=== PATIENT | female | born 1940 | race African-American/Black ===

== ENCOUNTER 2021-02-20 16:26 | Emergency (ER) | payer MEDICARE, MEDICAID ==
[~2021-02-20] VITALS: Ht 172.7 cm; Wt 77.0 kg
[2021-02-20 16:27] VITALS: BP 130/90
[2021-02-20 17:48] LABS: CLARITY URINE CLEAR (CLEAR); COLOR URINE YELLOW (YELLOW); KETONES URINE NEGATIVE (NEGATIVE); LEUKOCYTE ESTERASE URINE 1+ (NEGATIVE); NITRITE URINE NEGATIVE (NEGATIVE); OCCULT BLOOD URINE TRACE (NEGATIVE); PH URINE 5.5 (4.5-8.0); PROTEIN URINE NEGATIVE (NEGATIVE); SPECIFIC GRAVITY URINE 1.008 (1.005-1.030); UROBILINOGEN URINE 0.2 E.U./dL (0.2-1.0)
[2021-02-20 17:59] LABS: CHLORIDE 108 mEq/L (98-107)
[2021-02-20 18:25] LABS: BASOPHILS % 0.4 % (0.0-2.0); HEMATOCRIT. 36.8 % (36.0-48.0); HEMOGLOBIN. 12.6 g/dL (12.0-16.0); LYMPHOCYTES % 14.5 % (20.0-50.0); MEAN CORPUSCULAR HEMOGLOBIN 28.5 pg (28.0-32.0); MEAN CORPUSCULAR VOLUME 83.5 fL (81.0-99.0); MEAN PLATELET VOLUME 8.2 fl (7.4-10.4); MONOCYTES % 6.6 % (2.0-8.0); NEUTROPHILS % 77.5 % (40.0-76.0); PLATELET 206 x1000/uL (130-400); RED BLOOD CELL COUNT 4.41 mill/uL (4.2-5.4); RED CELL DISTRIBUTION WIDTH 14.5 % (11.6-14.6)
== END 2021-02-20 19:29 | disposition home or self-care (01) ==
LOC: ER 16:26
DX: S70.02XA Contusion of left hip, initial encounter (principal); S70.01XA Contusion of right hip, initial encounter; I10 Essential (primary) hypertension; E78.00 Pure hypercholesterolemia, unspecified; W01.0XXA Fall on same level from slipping, tripping and stumbling without subsequent striking against object, initial encounter; Y93.9 Activity, unspecified; Y92.9 Unspecified place or not applicable; Z90.49 Acquired absence of other specified parts of digestive tract
CPT/HCPCS: 36415; 71045; 72170; 80053; 81003; 84484; 85025; 99284

== ENCOUNTER 2022-08-20 04:26 | Inpatient (IN) | payer MEDICARE, MEDICAID ==
[~2022-08-20] VITALS: Ht 177.8 cm; Wt 61.7 kg
[~2022-08-20 04:26] MED LIST: AMLO10TA80 MT; ASPI-1497 PO; ATOR20TA65 MT; TRIA1TAB92 MT
[2022-08-20] MEDS ORDERED: ACETAMINOPHEN 500MG TABLET PO ONE (04:45)
[2022-08-20 05:00] LABS: HEMATOCRIT. 33.8 % (36.0-48.0); HEMOGLOBIN. 11.5 g/dL (12.0-16.0); MEAN CORPUSCULAR HEMOGLOBIN 30.1 pg (28.0-32.0); MEAN CORPUSCULAR VOLUME 88.8 fL (81.0-99.0); MEAN PLATELET VOLUME 7.8 fl (7.4-10.4); PLATELET 184 x1000/uL (130-400); RED BLOOD CELL COUNT 3.81 mill/uL (4.2-5.4); RED CELL DISTRIBUTION WIDTH 16.5 % (11.6-14.6)
[2022-08-20 05:11] LABS: CHLORIDE 101 mEq/L (98-107)
[2022-08-20 06:07] LABS: PROTHROMBIN TIME 10.9 sec (9.6-11.0)
[2022-08-20 06:12] LABS: PLATELET ESTIMATE NORMAL
[2022-08-20] MEDS ORDERED: PIPERACILLIN/TAZ 3.375G PREMIX 50 ML IV ONE (06:30)
[2022-08-20] MEDS ORDERED: VANCOMYCIN 1G PREMIX 200 ML IV ONE (06:30)
[2022-08-20] MEDS ORDERED: FUROSEMIDE 40MG/4ML VIAL IVP ONE (07:45)
[2022-08-20] MEDS ORDERED: ENALAPRIL 2.5MG/2ML VIAL 2ML IV ONE (07:45)
[2022-08-20] MEDS ORDERED: CLONIDINE 0.1MG TABLET PO PRN (11:30)
[2022-08-20] MEDS ORDERED: DIPHENHYDRAMINE 50MG/ML VIAL IV PRN (11:30)
[2022-08-20] MEDS ORDERED: ONDANSETRON HCL 4MG/2ML INJ IV PRN (11:30)
[2022-08-20] MEDS ORDERED: ACETAMINOPHEN 325MG TABLET PO PRN (11:30)
[2022-08-20] MEDS ORDERED: IPRATROPIUM/ALBUTEROL 0.5-3(2.5)MG/3ML NEB HHN PRN (11:30)
[2022-08-20] MEDS ORDERED: CEFTRIAXONE 1 G PREMIX 50 ML IV SCH (12:00)
[2022-08-20] MEDS ORDERED: AZITHROMYCIN 500MG/250ML 250 ML IV NR (12:00)
[2022-08-20 13:00] VITALS: BP 142/64
[2022-08-20] MEDS: ENOXAPARIN 40MG/0.4ML SYR SUBCUT SCH (15:52)
[2022-08-20 20:00] VITALS: BP 108/58
[2022-08-21] VITALS: BP 109/61
[2022-08-21 04:00] VITALS: BP 122/63
[2022-08-21 08:00] VITALS: BP 140/68
[2022-08-21] MEDS ORDERED: DYZ MT (10:36)
[2022-08-21] MEDS: ACETAMINOPHEN 325MG TABLET PO PRN (10:47)
[2022-08-21] MEDS: AMLODIPINE 10MG TABLET PO SCH (10:48)
[2022-08-21 11:59] VITALS: BP 113/63
[2022-08-21] MEDS ORDERED: AZITHROMYCIN 500 MG in DEXT 5% WATER 250 ML IV SCH (12:00)
[2022-08-21] MEDS: AZITHROMYCIN 500 MG in DEXT 5% WATER 250 ML IV SCH (12:16)
[2022-08-21] MEDS: ENOXAPARIN 40MG/0.4ML SYR SUBCUT SCH (12:17)
[2022-08-21] MEDS: CEFTRIAXONE 1,000 MG in DEXTROSE 5% WATER 50 ML IV SCH (15:04)
[2022-08-21 16:00] VITALS: BP 101/62
[2022-08-21 20:00] VITALS: BP 128/69
[2022-08-21] MEDS ORDERED: ATORVASTATIN CALCIUM 20MG TABLET PO SCH (21:00)
[2022-08-22] VITALS: BP 126/63
[2022-08-22 07:38] LABS: BASOPHILS % 0.2 % (0.0-2.0); EOSINOPHILS % 2.8 % (0.0-5.0); HEMATOCRIT. 32.7 % (36.0-48.0); LYMPHOCYTES % 20.1 % (20.0-50.0); MEAN CORPUSCULAR HEMOGLOBIN 29.9 pg (28.0-32.0); MEAN CORPUSCULAR VOLUME 89.1 fL (81.0-99.0); MEAN PLATELET VOLUME 8.4 fl (7.4-10.4); MONOCYTES % 14.6 % (2.0-8.0); NEUTROPHILS % 62.3 % (40.0-76.0); PLATELET 193 x1000/uL (130-400); RED BLOOD CELL COUNT 3.67 mill/uL (4.2-5.4); RED CELL DISTRIBUTION WIDTH 16.6 % (11.6-14.6)
[2022-08-22 07:59] LABS: CHLORIDE 103 mEq/L (98-107)
[2022-08-22 08:00] VITALS: BP 123/62
[2022-08-22] MEDS: AMLODIPINE 10MG TABLET PO SCH (09:59)
[2022-08-22] MEDS: ACETAMINOPHEN 325MG TABLET PO PRN (10:02)
[2022-08-22] MEDS ORDERED: ALBU18HF2 IH (11:43)
[2022-08-22] MEDS ORDERED: GUAI600T44 MT (11:43)
[2022-08-22] MEDS ORDERED: BENZ100C86 MT (11:43)
[2022-08-22] MEDS ORDERED: AZIT500T8 MT (11:43)
[2022-08-22] MEDS ORDERED: GUAIFENESIN 600MG ER TABLET PO SCH (11:45)
[2022-08-22] MEDS ORDERED: BENZONATATE 100MG CAPSULE PO PRN (11:45)
[2022-08-22 12:00] VITALS: BP 111/51
[2022-08-22] MEDS: AZITHROMYCIN 500 MG in DEXT 5% WATER 250 ML IV SCH (12:28)
[2022-08-22] MEDS: ENOXAPARIN 40MG/0.4ML SYR SUBCUT SCH (12:29)
[2022-08-22] MEDS: CEFTRIAXONE 1,000 MG in DEXTROSE 5% WATER 50 ML IV SCH (12:29)
[2022-08-22 14:20] VITALS: BP 111/51
[2022-08-22 16:00] VITALS: BP 138/82
[2022-08-23] MEDS ORDERED: AZITHROMYCIN 500 MG TABLET PO SCH (12:00)
== END 2022-08-22 18:40 | disposition home or self-care (01) | DRG 720 ==
LOC: ER 04:26 → EDBEDREQSVC 06:56 → EDBEDREQ 06:56 → EDBEDREQTM 06:56 → 7EST 09:10 → EDBEDREQTM 09:28 → EDBEDREQ 09:28 → ER 14:02
PROVIDERS: ADMIT Internal Medicine; ATTEND Internal Medicine
DX: A41.89 Other specified sepsis (principal); J12.82 Pneumonia due to coronavirus disease 2019; E44.1 Mild protein-calorie malnutrition; U07.1 COVID-19; R73.03 Prediabetes; J45.909 Unspecified asthma, uncomplicated; Z79.899 Other long term (current) drug therapy; Z78.9 Other specified health status; Z68.1 Body mass index [BMI] 19.9 or less, adult
CPT/HCPCS: 36415; 71045; 80048; 80053; 83605; 83880; 84145; 84484; 85025; 87426; 87804; 93005; 93970; 99291; C1893; C9803; J0456; J0696; J1650; J2543; J3370; J3490; J7060

== ENCOUNTER 2022-11-27 12:11 | Inpatient (IN) | payer MEDICARE, MEDICAID ==
[~2022-11-27] VITALS: Ht 167.6 cm; Wt 79.8 kg
[~2022-11-27 12:11] MED LIST changes: +ALBU18HF2 IH; -ASPI-1497 PO; +AZIT500T8 MT; +BENZ100C86 MT; +GUAI600T44 MT; -TRIA1TAB92 MT
[2022-11-27 12:56] LABS: BG CARBOXYHEMOGLOBIN 0.4 % (0.5-1.5); BG DEOXYHEMOGLOBIN 3.4 % (0.0-5.0); BG FRACTION INSPIRED OXYGEN 100; BG HCO3 ACT 26.6 mmol/L (22.0-26.0); BG METHEMOGLOBIN 0.4 % (0.0-1.5); BG OXYGEN SATURATION 96.6 % (92.0-98.5); BG OXYHEMOGLOBIN 95.8 % (94.0-97.0); BG PCO2 58.7 mmHg (35.0-45.0); BG PH 7.274 (7.350-7.450); BG PO2 99.6 mmHg (75.0-100.0); BG SAMPLE SITE LEFT BRACHIAL; BG TOTAL HEMOGLOBIN 10.9 g/dL (12.0-18.0); BG VENT MODE MASK - NRB
[2022-11-27] MEDS: CEFTRIAXONE 1GM PREMIX 50 ML IV NR ×2 (14:00→15:16)
[2022-11-27 15:14] LABS: BASOPHILS % 0.2 % (0.0-2.0); EOSINOPHILS % 1.9 % (0.0-5.0); HEMATOCRIT. 31.9 % (36.0-48.0); LYMPHOCYTES % 9.9 % (20.0-50.0); MEAN CORPUSCULAR HEMOGLOBIN 31.1 pg (28.0-32.0); MEAN CORPUSCULAR VOLUME 89.9 fL (81.0-99.0); MEAN PLATELET VOLUME 7.7 fl (7.4-10.4); MONOCYTES % 5.9 % (2.0-8.0); NEUTROPHILS % 82.1 % (40.0-76.0); PLATELET 257 x1000/uL (130-400); RED BLOOD CELL COUNT 3.55 mill/uL (4.2-5.4)
[2022-11-27 15:22] LABS: CHLORIDE 103 mEq/L (98-107)
[2022-11-27] MEDS ORDERED: CLONIDINE 0.1MG TABLET PO PRN (18:45)
[2022-11-27] MEDS ORDERED: ONDANSETRON HCL 4MG/2ML INJ IV PRN (18:45)
[2022-11-27] MEDS ORDERED: ACETAMINOPHEN 325MG TABLET PO PRN (18:45)
[2022-11-27] MEDS ORDERED: IPRATROPIUM/ALBUTEROL 0.5-3(2.5)MG/3ML NEB HHN PRN (18:45)
[2022-11-27] MEDS ORDERED: DIPHENHYDRAMINE 50MG/ML VIAL IV PRN (18:45)
[2022-11-27 22:02] VITALS: BP 151/51
[2022-11-28] VITALS (13 sets, daily range): BP systolic 104–143; BP diastolic 35–62
[2022-11-28] MEDS ORDERED: AMI2 PO (01:37)
[2022-11-28] MEDS ORDERED: HYDR-4001 MT (01:37)
[2022-11-28] MEDS ORDERED: PROT40 PO (01:37)
[2022-11-28] MEDS ORDERED: LISI40TA13 PO (01:37)
[2022-11-28] MEDS ORDERED: CARV12.545 PO (01:37)
[2022-11-28] MEDS ORDERED: APIX2.5T PO (01:37)
[2022-11-28] MEDS ORDERED: TRIA1TAB94 MT (01:37)
[2022-11-28] MEDS ORDERED: COLL30OI TP (01:37)
[2022-11-28] MEDS ORDERED: HYDROCODONE/ACETAMINOPHEN 5/325MG TABLET PO PRN (01:45)
[2022-11-28] MEDS: PANTOPRAZOLE 40MG DR TABLET PO SCH (06:10)
[2022-11-28 06:35] LABS: BASOPHILS % 1.1 % (0.0-2.0); EOSINOPHILS % 6.8 % (0.0-5.0); HEMATOCRIT. 30.9 % (36.0-48.0); HEMOGLOBIN. 10.5 g/dL (12.0-16.0); LYMPHOCYTES % 9.9 % (20.0-50.0); MEAN CORPUSCULAR HEMOGLOBIN 30.5 pg (28.0-32.0); MEAN PLATELET VOLUME 8.1 fl (7.4-10.4); MONOCYTES % 10.1 % (2.0-8.0); NEUTROPHILS % 72.1 % (40.0-76.0); PLATELET 218 x1000/uL (130-400); RED BLOOD CELL COUNT 3.44 mill/uL (4.2-5.4); RED CELL DISTRIBUTION WIDTH 14.9 % (11.6-14.6)
[2022-11-28 06:58] LABS: CHLORIDE 105 mEq/L (98-107)
[2022-11-28] MEDS ORDERED: TRIAMTERENE/HCTZ 37.5/25MG TABLET PO SCH (09:00)
[2022-11-28] MEDS ORDERED: LISINOPRIL 40MG TABLET PO SCH (09:00)
[2022-11-28] MEDS ORDERED: AMIODARONE HCL 200 MG TABLET PO SCH (09:00)
[2022-11-28] MEDS ORDERED: COLLAGENASE TOP SCH (09:00)
[2022-11-28] MEDS: CARVEDILOL 12.5MG TABLET PO SCH ×2 (09:21→17:03)
[2022-11-28] MEDS: AMLODIPINE 10MG TABLET PO SCH (09:22)
[2022-11-28] MEDS: APIXABAN 2.5 MG TABLET PO SCH ×2 (09:36→17:03)
[2022-11-28] MEDS: IPRATROPIUM BROMIDE (0.02%) 0.5MG/2.5ML NEB HHN SCH ×2 (12:38→20:01)
[2022-11-28] MEDS: FUROSEMIDE 40MG/4ML VIAL IVP SCH ×2 (15:36→17:03)
[2022-11-28] MEDS: ATORVASTATIN CALCIUM 20MG TABLET PO SCH (22:00)
[2022-11-29] VITALS (9 sets, daily range): BP systolic 104–133; BP diastolic 31–76
[2022-11-29] MEDS: IPRATROPIUM BROMIDE (0.02%) 0.5MG/2.5ML NEB HHN SCH ×4 (02:50→21:11)
[2022-11-29] MEDS: PANTOPRAZOLE 40MG DR TABLET PO SCH (06:07)
[2022-11-29 06:40] LABS: BASOPHILS % 0.4 % (0.0-2.0); EOSINOPHILS % 5.4 % (0.0-5.0); HEMATOCRIT. 31.6 % (36.0-48.0); HEMOGLOBIN. 10.6 g/dL (12.0-16.0); LYMPHOCYTES % 12.9 % (20.0-50.0); MEAN CORPUSCULAR HEMOGLOBIN 30.3 pg (28.0-32.0); MEAN CORPUSCULAR VOLUME 90.1 fL (81.0-99.0); MEAN PLATELET VOLUME 8.2 fl (7.4-10.4); MONOCYTES % 9.1 % (2.0-8.0); NEUTROPHILS % 72.2 % (40.0-76.0); PLATELET 199 x1000/uL (130-400); RED CELL DISTRIBUTION WIDTH 15.1 % (11.6-14.6)
[2022-11-29 07:44] LABS: CHLORIDE 105 mEq/L (98-107)
[2022-11-29 07:54] LABS: PHOSPHORUS 3.7 mg/dL (2.5-4.9)
[2022-11-29] MEDS ORDERED: SPIRONOLACTONE 25MG TABLET PO SCH (09:00)
[2022-11-29] MEDS: CARVEDILOL 12.5MG TABLET PO SCH ×2 (09:00→18:27)
[2022-11-29] MEDS: AMLODIPINE 10MG TABLET PO SCH (09:00)
[2022-11-29] MEDS: FUROSEMIDE 40MG/4ML VIAL IVP SCH ×2 (09:08→17:10)
[2022-11-29] MEDS: APIXABAN 2.5 MG TABLET PO SCH ×2 (09:08→18:27)
[2022-11-29] MEDS ORDERED: IPRATROPIUM BROMIDE (0.02%) 0.5MG/2.5ML NEB HHN PRN (17:00)
[2022-11-29] MEDS ORDERED: ALBUTEROL (0.083%) 2.5MG/3ML NEB HHN PRN (17:00)
[2022-11-29] MEDS ORDERED: NALOXONE HCL 0.4MG/ML VIAL IV PRN (17:00)
[2022-11-29] MEDS ORDERED: METOLAZONE 2.5MG TABLET PO NR (19:30)
[2022-11-29] MEDS: ATORVASTATIN CALCIUM 20MG TABLET PO SCH (21:34)
[2022-11-30] VITALS: BP 101/40
[2022-11-30] MEDS: IPRATROPIUM BROMIDE (0.02%) 0.5MG/2.5ML NEB HHN SCH ×3 (02:26→14:06)
[2022-11-30 04:00] VITALS: BP 122/43
[2022-11-30] MEDS: PANTOPRAZOLE 40MG DR TABLET PO SCH (05:57)
[2022-11-30 07:04] LABS: CHLORIDE 98 mEq/L (98-107)
[2022-11-30 08:25] VITALS: BP 118/54
[2022-11-30] MEDS: AMLODIPINE 10MG TABLET PO SCH (08:28)
[2022-11-30] MEDS: APIXABAN 2.5 MG TABLET PO SCH ×2 (08:29→17:07)
[2022-11-30] MEDS: FUROSEMIDE 40MG/4ML VIAL IVP SCH (08:29)
[2022-11-30] MEDS: CARVEDILOL 12.5MG TABLET PO SCH ×2 (08:29→17:07)
[2022-11-30] MEDS ORDERED: IPRATROPIUM/ALBUTEROL 0.5-3(2.5)MG/3ML NEB HHN PRN (09:45)
[2022-11-30 11:23] LABS: BG BASE EXCESS 10.2 mmol/L (-2.0-2.0); BG CARBOXYHEMOGLOBIN 0.3 % (0.5-1.5); BG DEOXYHEMOGLOBIN 1.4 % (0.0-5.0); BG FRACTION INSPIRED OXYGEN 32; BG HCO3 ACT 36.9 mmol/L (22.0-26.0); BG METHEMOGLOBIN 0.2 % (0.0-1.5); BG OXYGEN SATURATION 98.6 % (92.0-98.5); BG OXYHEMOGLOBIN 98.1 % (94.0-97.0); BG PCO2 61.2 mmHg (35.0-45.0); BG PH 7.398 (7.350-7.450); BG PO2 156.3 mmHg (75.0-100.0); BG SAMPLE SITE RIGHT RADIAL; BG TOTAL HEMOGLOBIN 10.7 g/dL (12.0-18.0); BG VENT MODE NASAL CANNULA
[2022-11-30 12:00] VITALS: BP 102/56
[2022-11-30] MEDS ORDERED: FAMO20TA8 PO (12:30)
[2022-11-30] MEDS ORDERED: FURO40TA5 MT (12:30)
[2022-11-30] MEDS ORDERED: BENZONATATE 100MG CAPSULE PO PRN (12:30)
[2022-11-30] MEDS ORDERED: GUAIFENESIN 600MG ER TABLET PO SCH (12:30)
[2022-11-30] MEDS ORDERED: BENZ100C86 MT (12:30)
[2022-11-30 14:21] VITALS: BP 102/56
[2022-11-30 16:06] VITALS: BP 116/50
[2022-12-01] MEDS ORDERED: FAMOTIDINE 20MG TABLET PO SCH (06:40)
[2022-12-01] MEDS ORDERED: FUROSEMIDE 40MG TABLET PO SCH (09:00)
== END 2022-11-30 18:10 | disposition home health service (06) | DRG 194 ==
LOC: ER 12:11 → MICUNO 16:34 → EDBEDREQ 16:45 → EDBEDREQSVC 16:45 → EDBEDREQTM 16:45 → ENRESERV 20:19 → 7EST 11-29 12:35
PROVIDERS: ADMIT Internal Medicine; ATTEND Internal Medicine
PROC: 5A09357 Assistance with Respiratory Ventilation, Less than 24 Consecutive Hours, Continuous Positive Airway Pressure (ICD-10-PCS; principal; 2022-11-27)
DX: I11.0 Hypertensive heart disease with heart failure (principal); J96.01 Acute respiratory failure with hypoxia; J96.02 Acute respiratory failure with hypercapnia; E44.1 Mild protein-calorie malnutrition; E87.29 Other acidosis; I50.43 Acute on chronic combined systolic (congestive) and diastolic (congestive) heart failure; D64.9 Anemia, unspecified; E78.5 Hyperlipidemia, unspecified; J81.1 Chronic pulmonary edema; Z68.28 Body mass index [BMI] 28.0-28.9, adult; I48.91 Unspecified atrial fibrillation; Z20.822 Contact with and (suspected) exposure to COVID-19; J45.909 Unspecified asthma, uncomplicated; Z87.01 Personal history of pneumonia (recurrent)
CPT/HCPCS: 36415; 36600; 71045; 80048; 80053; 82375; 82805; 83735; 83880; 84100; 84145; 84484; 85025; 87426; 93005; 93306; 93970; 94640; 94660; 97162; 99291; C9803; J0696; J1940

== ENCOUNTER 2023-07-22 03:35 | Inpatient (IN) | payer MEDICARE, MEDICAID ==
[~2023-07-22] VITALS: Ht 175.3 cm; Wt 86.2 kg
[~2023-07-22 03:35] MED LIST changes: -ALBU18HF2 IH; -AMLO10TA80 MT; +APIX5TAB PO; -AZIT500T8 MT; -BENZ100C86 MT; +DIGO-34 PO; +FAMO20TA8 PO; +FURO20TA4 PO; -GUAI600T44 MT; +METO25TA6 PO; +MONT-46 PO
[2023-07-22 04:38] LABS: BASOPHILS % 0.6 % (0.0-2.0); EOSINOPHILS % 2.7 % (0.0-5.0); HEMATOCRIT. 31.5 % (36.0-48.0); HEMOGLOBIN. 10.2 g/dL (12.0-16.0); LYMPHOCYTES % 21.4 % (20.0-50.0); MEAN CORPUSCULAR HEMOGLOBIN 27.9 pg (28.0-32.0); MEAN CORPUSCULAR HGB CONC 32.2 g/dL (31.0-37.0); MEAN CORPUSCULAR VOLUME 86.5 fL (81.0-99.0); MEAN PLATELET VOLUME 8.1 fl (7.4-10.4); MONOCYTES % 9.5 % (2.0-8.0); NEUTROPHILS % 65.8 % (40.0-76.0); PLATELET 218 x1000/uL (130-400); RED BLOOD CELL COUNT 3.65 mill/uL (4.2-5.4); RED CELL DISTRIBUTION WIDTH 17.6 % (11.6-14.6); WHITE BLOOD COUNT 7.9 x1000/uL (4.5-11.0)
[2023-07-22] MEDS ORDERED: METOPROLOL TARTRATE 5MG/5ML VIAL IV ONE ×3 (04:45→05:45)
[2023-07-22 04:57] LABS: ALANINE AMINOTRANSFERASE 40 IU/L (10-49); ALBUMIN 3.8 g/dL (3.2-4.8); ASPARTATE AMINOTRANSFERASE 37 IU/L (<34); BILIRUBIN TOTAL 0.5 mg/dL (0.1-1.0); CALCIUM 9.5 mg/dL (8.7-10.4); CARBON DIOXIDE 30 mEq/L (21-32); CHLORIDE 105 mEq/L (98-107); CREATININE 0.9 mg/dL (0.6-1.0); GLUCOSE 136 mg/dL (70-105); POTASSIUM 4.1 mEq/L (3.5-5.1); PROTEIN TOTAL 6.2 g/dL (6.0-8.3); SODIUM 140 mEq/L (136-145); THYROID STIMULATING HORMONE 0.77 uIU/mL (0.55-4.78); TROPONIN I HIGH SENSITIVITY 11 ng/L (3.0-34); UREA NITROGEN BLOOD 13 mg/dL (9-23)
[2023-07-22] MEDS ORDERED: IOHEXOL-350 100 ML BOTTLE ONE (07:38)
[2023-07-22 08:00] VITALS: BP 160/106; PULSE 156; RESP 22; TEMP 97.8
[2023-07-22] MEDS ORDERED: GUAIFENESIN 200MG/10ML SUGAR FREE UDC PO PRN (08:30)
[2023-07-22] MEDS ORDERED: DOCUSATE SODIUM 100MG CAPSULE PO PRN (08:30)
[2023-07-22] MEDS ORDERED: DILTIAZEM HCL 5MG/ML 5ML VIAL IV NR (08:30)
[2023-07-22] MEDS ORDERED: ONDANSETRON HCL 4MG/2ML INJ IV PRN (08:30)
[2023-07-22] MEDS: ASPIRIN 81MG EC TABLET PO SCH (08:46)
[2023-07-22] MEDS ORDERED: ENOXAPARIN 40MG/0.4ML SYR SUBCUT SCH (09:00)
[2023-07-22] MEDS ORDERED: ENOXAPARIN 60MG/0.6ML SYR SUBCUT NR (11:30)
[2023-07-22] MEDS: DILTIAZEM HCL 30MG TABLET PO SCH ×2 (13:02→21:34)
[2023-07-22] MEDS: CLONIDINE 0.1MG TABLET PO PRN (13:03)
[2023-07-22] MEDS ORDERED: DILTIAZEM HCL 125 MG in DEXT 5% WATER 100 ML IV SCH (14:00)
[2023-07-22 16:00] VITALS: BP 120/69; PULSE 108; RESP 22; TEMP 97.7
[2023-07-22 16:59] LABS: TROPONIN I HIGH SENSITIVITY 14 ng/L (3.0-34)
[2023-07-22 20:00] VITALS: BP 140/109; PULSE 122; RESP 26; TEMP 97.9
[2023-07-22] MEDS: MORPHINE SULFATE 2 MG/ML CPJ (NOT FOR IM USE) IV PRN (20:52)
[2023-07-22] MEDS: ENOXAPARIN 100MG/ML SYR SUBCUT SCH (22:09)
[2023-07-23] VITALS (11 sets, daily range): BP systolic 124–149; BP diastolic 61–122; PULSE 86–98; RESP 20–28; TEMP 97.5–98.5; O2SAT 98
[2023-07-23 00:14] LABS: TROPONIN I HIGH SENSITIVITY 14 ng/L (3.0-34)
[2023-07-23] MEDS: DILTIAZEM HCL 30MG TABLET PO SCH ×2 (05:01→13:53)
[2023-07-23] MEDS: ACETAMINOPHEN 325MG TABLET PO PRN (06:56)
[2023-07-23 07:52] LABS: BASOPHILS % 0.5 % (0.0-2.0); EOSINOPHILS % 2.3 % (0.0-5.0); HEMATOCRIT. 28.7 % (36.0-48.0); HEMOGLOBIN. 9.4 g/dL (12.0-16.0); LYMPHOCYTES % 17.4 % (20.0-50.0); MEAN CORPUSCULAR HEMOGLOBIN 27.9 pg (28.0-32.0); MEAN CORPUSCULAR HGB CONC 32.8 g/dL (31.0-37.0); MEAN PLATELET VOLUME 8.4 fl (7.4-10.4); MONOCYTES % 13.2 % (2.0-8.0); NEUTROPHILS % 66.6 % (40.0-76.0); PLATELET 220 x1000/uL (130-400); RED BLOOD CELL COUNT 3.37 mill/uL (4.2-5.4); RED CELL DISTRIBUTION WIDTH 17.4 % (11.6-14.6); WHITE BLOOD COUNT 8.7 x1000/uL (4.5-11.0)
[2023-07-23 08:26] LABS: ALANINE AMINOTRANSFERASE 59 IU/L (10-49); ALBUMIN 3.6 g/dL (3.2-4.8); ASPARTATE AMINOTRANSFERASE 44 IU/L (<34); BILIRUBIN TOTAL 0.8 mg/dL (0.1-1.0); CALCIUM 9.1 mg/dL (8.7-10.4); CARBON DIOXIDE 31 mEq/L (21-32); CHLORIDE 105 mEq/L (98-107); CHOLESTEROL 124 mg/dL (<200); CREATININE 0.8 mg/dL (0.6-1.0); GLUCOSE 99 mg/dL (70-105); HDL CHOLESTEROL 47 mg/dL (>65); LDL CHOLESTEROL 58 mg/dL (5-100); POTASSIUM 4.5 mEq/L (3.5-5.1); PROTEIN TOTAL 5.8 g/dL (6.0-8.3); SODIUM 141 mEq/L (136-145); TRIGLYCERIDE 61 mg/dL (0-150); UREA NITROGEN BLOOD 15 mg/dL (9-23)
[2023-07-23] MEDS: ENOXAPARIN 100MG/ML SYR SUBCUT SCH (09:02)
[2023-07-23] MEDS: ASPIRIN 81MG EC TABLET PO SCH (09:02)
[2023-07-23] MEDS ORDERED: NALOXONE HCL 0.4MG/ML VIAL IV PRN (11:30)
[2023-07-23] MEDS ORDERED: PROPOFOL 200MG/20ML VIAL IV ONE (15:25)
[2023-07-23] MEDS: MONTELUKAST SODIUM 10MG TABLET PO SCH (16:14)
[2023-07-23] MEDS: MORPHINE SULFATE 2 MG/ML CPJ (NOT FOR IM USE) IV PRN (16:14)
[2023-07-23] MEDS: IPRATROPIUM/ALBUTEROL 0.5-3(2.5)MG/3ML NEB HHN SCH (20:07)
[2023-07-23] MEDS: ENOXAPARIN 80MG/0.8ML SYR SUBCUT SCH (21:36)
[2023-07-23] MEDS: DILTIAZEM HCL 60MG TABLET PO SCH (21:38)
[2023-07-24] VITALS (17 sets, daily range): BP systolic 132–169; BP diastolic 59–78; PULSE 90–167; RESP 18–30; TEMP 97.3–97.8; O2SAT 94–100
[2023-07-24] MEDS: IPRATROPIUM/ALBUTEROL 0.5-3(2.5)MG/3ML NEB HHN SCH ×4 (02:00→21:12)
[2023-07-24] MEDS: DILTIAZEM HCL 60MG TABLET PO SCH ×3 (06:45→21:25)
[2023-07-24] MEDS: TRAMADOL 50MG TABLET PO PRN ×2 (06:45→21:26)
[2023-07-24] MEDS: ENOXAPARIN 80MG/0.8ML SYR SUBCUT SCH ×2 (09:45→21:26)
[2023-07-24] MEDS: ASPIRIN 81MG EC TABLET PO SCH (09:45)
[2023-07-24] MEDS ORDERED: DILTIAZEM HCL 5MG/ML 5ML VIAL IV PRN (12:00)
[2023-07-24] MEDS: DIGOXIN 125MCG TABLET PO SCH ×2 (12:31→17:53)
[2023-07-24 13:01] LABS: BG BASE EXCESS -1.1 mmol/L (-2.0-2.0); BG CARBOXYHEMOGLOBIN 0.3 % (0.5-1.5); BG DEOXYHEMOGLOBIN 7.4 % (0.0-5.0); BG HCO3 ACT 28.4 mmol/L (22.0-26.0); BG METHEMOGLOBIN 0.3 % (0.0-1.5); BG OXYGEN SATURATION 92.6 % (92.0-98.5); BG PCO2 77.2 mmHg (35.0-45.0); BG PH 7.183 (7.350-7.450); BG PO2 73.1 mmHg (75.0-100.0); BG SAMPLE SITE RIGHT BRACHIAL; BG TOTAL HEMOGLOBIN 10.4 g/dL (12.0-18.0); BG VENT MODE NASAL CANNULA
[2023-07-24 14:54] LABS: BG BASE EXCESS 0.6 mmol/L (-2.0-2.0); BG CARBOXYHEMOGLOBIN 0.3 % (0.5-1.5); BG DEOXYHEMOGLOBIN 3.3 % (0.0-5.0); BG HCO3 ACT 29.9 mmol/L (22.0-26.0); BG METHEMOGLOBIN 0.4 % (0.0-1.5); BG OXYGEN SATURATION 96.7 % (92.0-98.5); BG PH 7.202 (7.350-7.450); BG PO2 97.4 mmHg (75.0-100.0); BG SAMPLE SITE RIGHT BRACHIAL; BG TOTAL HEMOGLOBIN 10.3 g/dL (12.0-18.0); BG VENT MODE MASK - BIPAP
[2023-07-24 16:40] LABS: BG BASE EXCESS 1.2 mmol/L (-2.0-2.0); BG CARBOXYHEMOGLOBIN 0.3 % (0.5-1.5); BG DEOXYHEMOGLOBIN 1.9 % (0.0-5.0); BG HCO3 ACT 30.1 mmol/L (22.0-26.0); BG METHEMOGLOBIN 0.3 % (0.0-1.5); BG OXYGEN SATURATION 98.1 % (92.0-98.5); BG OXYHEMOGLOBIN 97.5 % (94.0-97.0); BG PCO2 72.9 mmHg (35.0-45.0); BG PH 7.233 (7.350-7.450); BG PO2 130.3 mmHg (75.0-100.0); BG SAMPLE SITE RIGHT BRACHIAL; BG TOTAL HEMOGLOBIN 10.5 g/dL (12.0-18.0); BG VENT MODE MASK - BIPAP
[2023-07-24] MEDS: MONTELUKAST SODIUM 10MG TABLET PO SCH (17:00)
[2023-07-24] MEDS ORDERED: METOPROLOL TARTRATE 5MG/5ML VIAL IV NR (17:00)
[2023-07-24] MEDS ORDERED: DILTIAZEM HCL 5MG/ML 5ML VIAL IV NR (17:15)
[2023-07-25] VITALS (14 sets, daily range): BP systolic 125–153; BP diastolic 56–75; PULSE 76–176; RESP 16–30; TEMP 98.2–98.8
[2023-07-25] MEDS: IPRATROPIUM/ALBUTEROL 0.5-3(2.5)MG/3ML NEB HHN SCH ×4 (01:15→21:04)
[2023-07-25] MEDS: CLONIDINE 0.1MG TABLET PO PRN (03:14)
[2023-07-25] MEDS: DILTIAZEM HCL 60MG TABLET PO SCH ×3 (06:15→19:50)
[2023-07-25] MEDS: ASPIRIN 81MG EC TABLET PO SCH (08:33)
[2023-07-25] MEDS: ENOXAPARIN 80MG/0.8ML SYR SUBCUT SCH ×2 (08:33→21:22)
[2023-07-25 10:44] LABS: BG BASE EXCESS 2.7 mmol/L (-2.0-2.0); BG CARBOXYHEMOGLOBIN 0.3 % (0.5-1.5); BG DEOXYHEMOGLOBIN 1.4 % (0.0-5.0); BG HCO3 ACT 31.1 mmol/L (22.0-26.0); BG METHEMOGLOBIN 0.5 % (0.0-1.5); BG OXYGEN SATURATION 98.6 % (92.0-98.5); BG OXYHEMOGLOBIN 97.8 % (94.0-97.0); BG PCO2 68.9 mmHg (35.0-45.0); BG PH 7.272 (7.350-7.450); BG PO2 154.4 mmHg (75.0-100.0); BG SAMPLE SITE RIGHT BRACHIAL; BG TOTAL HEMOGLOBIN 11.3 g/dL (12.0-18.0); BG VENT MODE MASK - BIPAP
[2023-07-25] MEDS: DIGOXIN 125MCG TABLET PO SCH (17:24)
[2023-07-25] MEDS: MONTELUKAST SODIUM 10MG TABLET PO SCH (17:24)
[2023-07-25] MEDS: TRAMADOL 50MG TABLET PO PRN (20:17)
[2023-07-25] MEDS ORDERED: METOPROLOL TARTRATE 5MG/5ML VIAL IV ONE (20:30)
[2023-07-25] MEDS ORDERED: METOPROLOL TARTRATE 5MG/5ML VIAL IV NR ×2 (20:45→21:30)
[2023-07-25] MEDS: MORPHINE SULFATE 2 MG/ML CPJ (NOT FOR IM USE) IV PRN (23:05)
[2023-07-26] VITALS (18 sets, daily range): BP systolic 104–152; BP diastolic 57–100; PULSE 108–185; RESP 16–27; TEMP 98.2–98.8; O2SAT 100
[2023-07-26] MEDS: IPRATROPIUM/ALBUTEROL 0.5-3(2.5)MG/3ML NEB HHN SCH ×2 (01:16→21:15)
[2023-07-26] MEDS: DILTIAZEM HCL 60MG TABLET PO SCH ×3 (06:00→21:37)
[2023-07-26 08:13] LABS: BG BASE EXCESS 4.4 mmol/L (-2.0-2.0); BG CARBOXYHEMOGLOBIN 0.3 % (0.5-1.5); BG DEOXYHEMOGLOBIN 1.5 % (0.0-5.0); BG FRACTION INSPIRED OXYGEN 40; BG HCO3 ACT 30.2 mmol/L (22.0-26.0); BG METHEMOGLOBIN 0.2 % (0.0-1.5); BG OXYGEN SATURATION 98.5 % (92.0-98.5); BG PCO2 51.4 mmHg (35.0-45.0); BG PH 7.387 (7.350-7.450); BG PO2 145.3 mmHg (75.0-100.0); BG SAMPLE SITE RIGHT RADIAL; BG TOTAL HEMOGLOBIN 9.5 g/dL (12.0-18.0); BG VENT MODE MASK - BIPAP
[2023-07-26] MEDS ORDERED: DILTIAZEM HCL 5MG/ML 5ML VIAL IV NR ×2 (08:30→10:00)
[2023-07-26] MEDS: ENOXAPARIN 80MG/0.8ML SYR SUBCUT SCH ×2 (08:39→21:00)
[2023-07-26] MEDS: ASPIRIN 81MG EC TABLET PO SCH (08:40)
[2023-07-26] MEDS ORDERED: DIGOXIN 500MCG/2ML AMP IV NR (11:30)
[2023-07-26] MEDS ORDERED: DILTIAZEM HCL 125 MG in DEXT 5% WATER 100 ML IV SCH (13:00)
[2023-07-26] MEDS: MONTELUKAST SODIUM 10MG TABLET PO SCH (17:34)
[2023-07-26] MEDS: TRAMADOL 50MG TABLET PO PRN (17:40)
[2023-07-26] MEDS ORDERED: DIGOXIN 125MCG TABLET PO SCH (18:00)
[2023-07-26] MEDS: SILDENAFIL CITRATE 20MG TABLET PO SCH (21:37)
[2023-07-27] VITALS (40 sets, daily range): BP systolic 52–186; BP diastolic 57–115; PULSE 83–155; RESP 20–33; TEMP 97.8–98.2; O2SAT 100
[2023-07-27] MEDS: IPRATROPIUM/ALBUTEROL 0.5-3(2.5)MG/3ML NEB HHN SCH (02:13)
[2023-07-27] MEDS: DILTIAZEM HCL 60MG TABLET PO SCH ×3 (05:44→22:35)
[2023-07-27] MEDS: SILDENAFIL CITRATE 20MG TABLET PO SCH ×3 (05:45→22:36)
[2023-07-27 09:15] LABS: BG BASE EXCESS 5.3 mmol/L (-2.0-2.0); BG CARBOXYHEMOGLOBIN 0.3 % (0.5-1.5); BG DEOXYHEMOGLOBIN 2.6 % (0.0-5.0); BG FRACTION INSPIRED OXYGEN 60; BG HCO3 ACT 30.1 mmol/L (22.0-26.0); BG METHEMOGLOBIN 0.3 % (0.0-1.5); BG OXYGEN SATURATION 97.4 % (92.0-98.5); BG OXYHEMOGLOBIN 96.8 % (94.0-97.0); BG PCO2 45.2 mmHg (35.0-45.0); BG PH 7.441 (7.350-7.450); BG PO2 102.6 mmHg (75.0-100.0); BG SAMPLE SITE RIGHT RADIAL; BG TOTAL HEMOGLOBIN 9.7 g/dL (12.0-18.0); BG VENT MODE HIGH FLOW
[2023-07-27] MEDS: ASPIRIN 81MG EC TABLET PO SCH (10:03)
[2023-07-27] MEDS: ENOXAPARIN 80MG/0.8ML SYR SUBCUT SCH (10:04)
[2023-07-27] MEDS ORDERED: HEPARIN 5000 UNITS/ML VIAL IV SCH (13:45)
[2023-07-27] MEDS ORDERED: HEPARIN 5000 UNITS/ML VIAL IV PRN ×2 (13:45)
[2023-07-27] MEDS ORDERED: HEPARIN 25,000 UNITS PREMIX 250 ML IV PRN (13:45)
[2023-07-27] MEDS: DILTIAZEM HCL 125 MG in DEXT 5% WATER 100 ML IV SCH ×2 (13:51→22:11)
[2023-07-27] MEDS ORDERED: LIDOCAINE HCL 1% 10 MG/ML 10ML VIAL ONE (14:56)
[2023-07-27] MEDS ORDERED: ESMOLOL 2500MG PREMIX 250 ML IV PRN (15:00)
[2023-07-27] MEDS: AMIODARONE HCL 900 MG in DEXT 5% WATER 482 ML IV SCH (16:05)
[2023-07-27 16:20] LABS: BASOPHILS % 0.2 % (0.0-2.0); EOSINOPHILS % 1.6 % (0.0-5.0); HEMATOCRIT. 29.9 % (36.0-48.0); HEMOGLOBIN. 9.7 g/dL (12.0-16.0); LYMPHOCYTES % 10.2 % (20.0-50.0); MEAN CORPUSCULAR HEMOGLOBIN 27.6 pg (28.0-32.0); MEAN CORPUSCULAR HGB CONC 32.5 g/dL (31.0-37.0); MEAN CORPUSCULAR VOLUME 84.8 fL (81.0-99.0); MEAN PLATELET VOLUME 8.8 fl (7.4-10.4); MONOCYTES % 11.5 % (2.0-8.0); NEUTROPHILS % 76.5 % (40.0-76.0); PLATELET 208 x1000/uL (130-400); RED BLOOD CELL COUNT 3.53 mill/uL (4.2-5.4); RED CELL DISTRIBUTION WIDTH 17.2 % (11.6-14.6); WHITE BLOOD COUNT 8.5 x1000/uL (4.5-11.0)
[2023-07-27 16:31] LABS: INR 1.1; PARTIAL THROMBOPLASTIN TIME 32.3 sec (23.4-31.0); PROTHROMBIN TIME 11.4 sec (9.6-11.0)
[2023-07-27 16:44] LABS: CALCIUM 9.5 mg/dL (8.7-10.4); CARBON DIOXIDE 33 mEq/L (21-32); CHLORIDE 101 mEq/L (98-107); CREATININE 0.6 mg/dL (0.6-1.0); GLUCOSE 111 mg/dL (70-105); POTASSIUM 4.4 mEq/L (3.5-5.1); SODIUM 142 mEq/L (136-145); UREA NITROGEN BLOOD 14 mg/dL (9-23)
[2023-07-27] MEDS ORDERED: HEPARIN 80 UNITS/KG BOLUS IV NR (16:45)
[2023-07-27] MEDS ORDERED: HEPARIN BOLUS PRN aPTT <36 IV (16:45)
[2023-07-27] MEDS ORDERED: HEPARIN BOLUS PRN aPTT 37-44 IV (16:45)
[2023-07-27] MEDS: HEPARIN 25,000 UNITS PREMIX 250 ML IV SCH (16:59)
[2023-07-27] MEDS: MONTELUKAST SODIUM 10MG TABLET PO SCH (17:00)
[2023-07-27] MEDS: IPRATROPIUM BROMIDE (0.02%) 0.5MG/2.5ML NEB HHN SCH (20:23)
[2023-07-27] MEDS: MORPHINE SULFATE 2 MG/ML CPJ (NOT FOR IM USE) IV PRN (22:35)
[2023-07-28] VITALS (87 sets, daily range): BP systolic 123–179; BP diastolic 51–124; PULSE 80–123; RESP 14–44; TEMP 97.8–98.4; O2SAT 100
[2023-07-28] MEDS: IPRATROPIUM BROMIDE (0.02%) 0.5MG/2.5ML NEB HHN SCH ×4 (02:57→21:57)
[2023-07-28] MEDS: DILTIAZEM HCL 60MG TABLET PO SCH ×4 (05:42→20:56)
[2023-07-28] MEDS: SILDENAFIL CITRATE 20MG TABLET PO SCH ×4 (05:42→20:56)
[2023-07-28] MEDS: MORPHINE SULFATE 2 MG/ML CPJ (NOT FOR IM USE) IV PRN (05:59)
[2023-07-28] MEDS: ASPIRIN 81MG EC TABLET PO SCH (08:57)
[2023-07-28] MEDS: AMIODARONE HCL 900 MG in DEXT 5% WATER 482 ML IV SCH (10:46)
[2023-07-28 12:14] LABS: BG BASE EXCESS 6.3 mmol/L (-2.0-2.0); BG CARBOXYHEMOGLOBIN 0.3 % (0.5-1.5); BG DEOXYHEMOGLOBIN 5.6 % (0.0-5.0); BG FRACTION INSPIRED OXYGEN 50; BG HCO3 ACT 35.2 mmol/L (22.0-26.0); BG METHEMOGLOBIN 0.2 % (0.0-1.5); BG OXYGEN SATURATION 94.4 % (92.0-98.5); BG OXYHEMOGLOBIN 93.9 % (94.0-97.0); BG PCO2 79.3 mmHg (35.0-45.0); BG PH 7.265 (7.350-7.450); BG PO2 80.5 mmHg (75.0-100.0); BG SAMPLE SITE LEFT RADIAL; BG TOTAL HEMOGLOBIN 10.3 g/dL (12.0-18.0); BG VENT MODE HIGH FLOW
[2023-07-28] MEDS: DILTIAZEM HCL 125 MG in DEXT 5% WATER 100 ML IV SCH (14:57)
[2023-07-28] MEDS: MONTELUKAST SODIUM 10MG TABLET PO SCH (17:00)
[2023-07-28] MEDS: AMIODARONE HCL 200 MG TABLET PO SCH (20:57)
[2023-07-29] VITALS (57 sets, daily range): BP systolic 112–161; BP diastolic 39–112; PULSE 78–114; RESP 15–35; TEMP 97.9–99.4
[2023-07-29] MEDS: IPRATROPIUM BROMIDE (0.02%) 0.5MG/2.5ML NEB HHN SCH ×4 (03:34→21:00)
[2023-07-29] MEDS: DILTIAZEM HCL 125 MG in DEXT 5% WATER 100 ML IV SCH ×2 (03:38→16:26)
[2023-07-29] MEDS: SILDENAFIL CITRATE 20MG TABLET PO SCH ×3 (05:16→22:33)
[2023-07-29] MEDS: DILTIAZEM HCL 60MG TABLET PO SCH ×3 (05:16→22:33)
[2023-07-29 05:38] LABS: BASOPHILS % 0.5 % (0.0-2.0); EOSINOPHILS % 0.7 % (0.0-5.0); HEMOGLOBIN. 9.2 g/dL (12.0-16.0); LYMPHOCYTES % 9.1 % (20.0-50.0); MEAN CORPUSCULAR HEMOGLOBIN 28.2 pg (28.0-32.0); MEAN CORPUSCULAR HGB CONC 32.7 g/dL (31.0-37.0); MEAN CORPUSCULAR VOLUME 86.2 fL (81.0-99.0); MEAN PLATELET VOLUME 8.5 fl (7.4-10.4); MONOCYTES % 10.8 % (2.0-8.0); NEUTROPHILS % 78.9 % (40.0-76.0); PLATELET 206 x1000/uL (130-400); RED BLOOD CELL COUNT 3.25 mill/uL (4.2-5.4); RED CELL DISTRIBUTION WIDTH 16.7 % (11.6-14.6); WHITE BLOOD COUNT 10.9 x1000/uL (4.5-11.0)
[2023-07-29 07:32] LABS: ALANINE AMINOTRANSFERASE 40 IU/L (10-49); ALBUMIN 3.7 g/dL (3.2-4.8); ASPARTATE AMINOTRANSFERASE 20 IU/L (<34); BILIRUBIN TOTAL 0.6 mg/dL (0.1-1.0); CALCIUM 9.5 mg/dL (8.7-10.4); CARBON DIOXIDE 32 mEq/L (21-32); CHLORIDE 100 mEq/L (98-107); CREATININE 0.7 mg/dL (0.6-1.0); GLUCOSE 145 mg/dL (70-105); POTASSIUM 5.2 mEq/L (3.5-5.1); PROTEIN TOTAL 5.8 g/dL (6.0-8.3); SODIUM 139 mEq/L (136-145); UREA NITROGEN BLOOD 12 mg/dL (9-23)
[2023-07-29 08:36] LABS: BG BASE EXCESS 9.9 mmol/L (-2.0-2.0); BG CARBOXYHEMOGLOBIN 0.3 % (0.5-1.5); BG DEOXYHEMOGLOBIN 3.5 % (0.0-5.0); BG FRACTION INSPIRED OXYGEN 40; BG HCO3 ACT 36.1 mmol/L (22.0-26.0); BG METHEMOGLOBIN 0.1 % (0.0-1.5); BG OXYGEN SATURATION 96.5 % (92.0-98.5); BG OXYHEMOGLOBIN 96.1 % (94.0-97.0); BG PCO2 58.5 mmHg (35.0-45.0); BG PH 7.408 (7.350-7.450); BG PO2 91.5 mmHg (75.0-100.0); BG SAMPLE SITE LEFT BRACHIAL; BG TOTAL HEMOGLOBIN 9.7 g/dL (12.0-18.0); BG TOTAL RESPIRATORY RATE 35 b/min; BG VENT MODE MASK - BIPAP
[2023-07-29] MEDS: AMIODARONE HCL 200 MG TABLET PO SCH ×2 (09:22→21:06)
[2023-07-29] MEDS: ASPIRIN 81MG EC TABLET PO SCH (09:22)
[2023-07-29] MEDS ORDERED: SODIUM POLYSTYRENE SULFONATE 15 G/60 ML BOT PO NR (11:00)
[2023-07-29] MEDS: CARVEDILOL 3.125 MG TABLET PO SCH ×2 (12:40→21:07)
[2023-07-29] MEDS: MONTELUKAST SODIUM 10MG TABLET PO SCH (15:55)
[2023-07-30] VITALS (68 sets, daily range): BP systolic 104–150; BP diastolic 43–106; PULSE 72–92; RESP 18–28; TEMP 97.7–99.7
[2023-07-30] MEDS: HEPARIN 25,000 UNITS PREMIX 250 ML IV SCH (01:52)
[2023-07-30] MEDS: IPRATROPIUM BROMIDE (0.02%) 0.5MG/2.5ML NEB HHN SCH ×4 (02:57→20:48)
[2023-07-30] MEDS: SILDENAFIL CITRATE 20MG TABLET PO SCH ×3 (06:11→21:15)
[2023-07-30] MEDS: DILTIAZEM HCL 60MG TABLET PO SCH (06:12)
[2023-07-30] MEDS ORDERED: CARVEDILOL 6.25 MG TABLET PO SCH (09:00)
[2023-07-30] MEDS: ASPIRIN 81MG EC TABLET PO SCH (09:20)
[2023-07-30] MEDS: AMIODARONE HCL 200 MG TABLET PO SCH ×2 (09:20→21:15)
[2023-07-30 10:36] LABS: ALANINE AMINOTRANSFERASE 27 IU/L (10-49); ALBUMIN 3.2 g/dL (3.2-4.8); ASPARTATE AMINOTRANSFERASE 14 IU/L (<34); BILIRUBIN TOTAL 0.5 mg/dL (0.1-1.0); CALCIUM 8.9 mg/dL (8.7-10.4); CARBON DIOXIDE 38 mEq/L (21-32); CHLORIDE 100 mEq/L (98-107); CREATININE 0.6 mg/dL (0.6-1.0); GLUCOSE 117 mg/dL (70-105); POTASSIUM 3.3 mEq/L (3.5-5.1); PROTEIN TOTAL 5.1 g/dL (6.0-8.3); SODIUM 141 mEq/L (136-145); UREA NITROGEN BLOOD 11 mg/dL (9-23)
[2023-07-30 10:59] LABS: HEMATOCRIT. 24.9 % (36.0-48.0); MEAN CORPUSCULAR HEMOGLOBIN 27.4 pg (28.0-32.0); MEAN CORPUSCULAR HGB CONC 32.1 g/dL (31.0-37.0); MEAN CORPUSCULAR VOLUME 85.5 fL (81.0-99.0); MEAN PLATELET VOLUME 8.8 fl (7.4-10.4); PLATELET 170 x1000/uL (130-400); RED BLOOD CELL COUNT 2.91 mill/uL (4.2-5.4); RED CELL DISTRIBUTION WIDTH 16.7 % (11.6-14.6); WHITE BLOOD COUNT 8.7 x1000/uL (4.5-11.0)
[2023-07-30 11:01] LABS: DIFFERENTIAL COMMENT 1
[2023-07-30 13:18] LABS: ANISOCYTOSIS 1+; PLATELET ESTIMATE NORMAL
[2023-07-30] MEDS: DILTIAZEM HCL 90MG TABLET PO SCH ×2 (15:10→21:15)
[2023-07-30] MEDS: MONTELUKAST SODIUM 10MG TABLET PO SCH (16:30)
[2023-07-30] MEDS ORDERED: NALOXONE HCL 0.4MG/ML VIAL IV PRN (21:45)
[2023-07-31] VITALS (64 sets, daily range): BP systolic 119–167; BP diastolic 43–98; PULSE 77–123; RESP 20–49; TEMP 97.5–98.6
[2023-07-31] MEDS: IPRATROPIUM BROMIDE (0.02%) 0.5MG/2.5ML NEB HHN SCH ×4 (00:37→20:10)
[2023-07-31] MEDS: SILDENAFIL CITRATE 20MG TABLET PO SCH ×3 (05:26→21:04)
[2023-07-31] MEDS: DILTIAZEM HCL 90MG TABLET PO SCH ×3 (05:26→21:04)
[2023-07-31] MEDS: HEPARIN 25,000 UNITS PREMIX 250 ML IV SCH (05:54)
[2023-07-31] MEDS: AMIODARONE HCL 200 MG TABLET PO SCH ×2 (08:52→21:04)
[2023-07-31] MEDS: ASPIRIN 81MG EC TABLET PO SCH (08:52)
[2023-07-31 10:32] LABS: HEMATOCRIT 26.9 % (36.0-48.0); HEMOGLOBIN 8.7 g/dL (12.0-16.0); MEAN CORPUSCULAR HEMOGLOBIN 27.3 pg (28.0-32.0); MEAN CORPUSCULAR HGB CONC 32.3 g/dL (31.0-37.0); MEAN CORPUSCULAR VOLUME 84.4 fL (81.0-99.0); PLATELET 200 x1000/uL (130-400); RED BLOOD CELL COUNT 3.19 mill/uL (4.2-5.4); WHITE BLOOD COUNT 9.5 x1000/uL (4.5-11.0)
[2023-07-31 11:05] LABS: ALANINE AMINOTRANSFERASE 20 IU/L (10-49); ALBUMIN 3.3 g/dL (3.2-4.8); ASPARTATE AMINOTRANSFERASE 12 IU/L (<34); BILIRUBIN TOTAL 0.5 mg/dL (0.1-1.0); CALCIUM 9.1 mg/dL (8.7-10.4); CARBON DIOXIDE 38 mEq/L (21-32); CHLORIDE 99 mEq/L (98-107); CREATININE 0.6 mg/dL (0.6-1.0); GLUCOSE 169 mg/dL (70-105); POTASSIUM 3.3 mEq/L (3.5-5.1); PROTEIN TOTAL 5.3 g/dL (6.0-8.3); SODIUM 141 mEq/L (136-145); UREA NITROGEN BLOOD 9 mg/dL (9-23)
[2023-07-31] MEDS ORDERED: POTASSIUM CHLORIDE 20MEQ/PACKET PO NR (11:45)
[2023-07-31] MEDS ORDERED: DIGOXIN 500MCG/2ML AMP IV PRN (12:15)
[2023-07-31] MEDS ORDERED: DILTIAZEM HCL 5MG/ML 5ML VIAL IV PRN (12:15)
[2023-07-31] MEDS ORDERED: DIGOXIN 500MCG/2ML AMP IV SCH (12:15)
[2023-07-31] MEDS ORDERED: DIGOXIN 500MCG/2ML AMP IV NR (13:39)
[2023-07-31] MEDS: MONTELUKAST SODIUM 10MG TABLET PO SCH (17:49)
[2023-08-01] VITALS (66 sets, daily range): BP systolic 125–161; BP diastolic 49–113; PULSE 68–121; RESP 18–38; TEMP 97.5–98.8; O2SAT 100
[2023-08-01] MEDS: IPRATROPIUM BROMIDE (0.02%) 0.5MG/2.5ML NEB HHN SCH ×3 (01:11→13:36)
[2023-08-01] MEDS: SILDENAFIL CITRATE 20MG TABLET PO SCH ×3 (05:37→21:48)
[2023-08-01] MEDS: DILTIAZEM HCL 90MG TABLET PO SCH ×3 (05:37→21:48)
[2023-08-01] MEDS: AMIODARONE HCL 200 MG TABLET PO SCH ×2 (08:52→21:48)
[2023-08-01] MEDS: ASPIRIN 81MG EC TABLET PO SCH (08:52)
[2023-08-01] MEDS: HEPARIN 25,000 UNITS PREMIX 250 ML IV SCH (12:19)
[2023-08-01] MEDS: METHYLPREDNISOLONE SOD SUCC 40MG/ML (ACT-O-VIAL) IV SCH ×2 (12:27→21:48)
[2023-08-01] MEDS: MONTELUKAST SODIUM 10MG TABLET PO SCH (17:20)
[2023-08-02] VITALS (20 sets, daily range): BP systolic 123–164; BP diastolic 57–151; PULSE 73–120; RESP 20–32; TEMP 97.5–98.8
[2023-08-02] MEDS: DILTIAZEM HCL 90MG TABLET PO SCH ×3 (06:29→21:18)
[2023-08-02] MEDS: METHYLPREDNISOLONE SOD SUCC 40MG/ML (ACT-O-VIAL) IV SCH ×2 (06:29→13:55)
[2023-08-02] MEDS: SILDENAFIL CITRATE 20MG TABLET PO SCH ×3 (06:30→21:17)
[2023-08-02] MEDS: AMIODARONE HCL 200 MG TABLET PO SCH ×2 (09:34→21:17)
[2023-08-02] MEDS: ASPIRIN 81MG EC TABLET PO SCH (09:34)
[2023-08-02] MEDS: CLONIDINE 0.1MG TABLET PO PRN ×2 (10:11→16:33)
[2023-08-02] MEDS: ACETAMINOPHEN 325MG TABLET PO PRN (15:23)
[2023-08-02] MEDS: MONTELUKAST SODIUM 10MG TABLET PO SCH (17:10)
[2023-08-02] MEDS: HEPARIN 25,000 UNITS PREMIX 250 ML IV SCH (21:07)
[2023-08-02] MEDS: METHYLPREDNISOLONE SOD SUCC 125MG/2ML (ACT-O-VIAL) IV SCH (21:19)
[2023-08-02] MEDS: IPRATROPIUM/ALBUTEROL 0.5-3(2.5)MG/3ML NEB HHN PRN (21:27)
[2023-08-03] VITALS (17 sets, daily range): BP systolic 110–161; BP diastolic 58–83; PULSE 53–94; RESP 19–37; TEMP 97.3–98.7
[2023-08-03] MEDS: IPRATROPIUM/ALBUTEROL 0.5-3(2.5)MG/3ML NEB HHN PRN (00:36)
[2023-08-03] MEDS: METHYLPREDNISOLONE SOD SUCC 125MG/2ML (ACT-O-VIAL) IV SCH ×3 (05:33→21:02)
[2023-08-03] MEDS: DILTIAZEM HCL 90MG TABLET PO SCH ×3 (05:34→21:02)
[2023-08-03] MEDS: SILDENAFIL CITRATE 20MG TABLET PO SCH ×3 (05:35→21:03)
[2023-08-03] MEDS: AMIODARONE HCL 200 MG TABLET PO SCH ×2 (09:38→21:03)
[2023-08-03] MEDS: ASPIRIN 81MG EC TABLET PO SCH (09:38)
[2023-08-03] MEDS: ACETAMINOPHEN 325MG TABLET PO PRN (09:58)
[2023-08-03 13:37] LABS: CALCIUM 9.5 mg/dL (8.7-10.4); CARBON DIOXIDE 38 mEq/L (21-32); CHLORIDE 98 mEq/L (98-107); CREATININE 0.8 mg/dL (0.6-1.0); GLUCOSE 177 mg/dL (70-105); POTASSIUM 5.1 mEq/L (3.5-5.1); SODIUM 137 mEq/L (136-145); UREA NITROGEN BLOOD 15 mg/dL (9-23)
[2023-08-03] MEDS: ENOXAPARIN 80MG/0.8ML SYR SUBCUT SCH ×2 (14:55→21:02)
[2023-08-03] MEDS: MONTELUKAST SODIUM 10MG TABLET PO SCH (18:17)
[2023-08-03] MEDS: IPRATROPIUM BROMIDE (0.02%) 0.5MG/2.5ML NEB HHN SCH (20:27)
[2023-08-04] VITALS (15 sets, daily range): BP systolic 137–170; BP diastolic 49–71; PULSE 75–101; RESP 20–32; TEMP 97.5–98.6
[2023-08-04] MEDS: METHYLPREDNISOLONE SOD SUCC 125MG/2ML (ACT-O-VIAL) IV SCH ×3 (06:16→21:36)
[2023-08-04] MEDS: DILTIAZEM HCL 90MG TABLET PO SCH ×3 (06:17→21:35)
[2023-08-04] MEDS: SILDENAFIL CITRATE 20MG TABLET PO SCH ×3 (06:17→21:36)
[2023-08-04] MEDS: CLONIDINE 0.1MG TABLET PO PRN (07:04)
[2023-08-04] MEDS: ENOXAPARIN 80MG/0.8ML SYR SUBCUT SCH ×2 (08:50→21:34)
[2023-08-04] MEDS: ASPIRIN 81MG EC TABLET PO SCH (08:51)
[2023-08-04] MEDS: MULTIVITAMINS,THER W-MINERALS TABLET PO SCH (08:51)
[2023-08-04] MEDS: AMIODARONE HCL 200 MG TABLET PO SCH ×2 (08:54→21:35)
[2023-08-04] MEDS: IPRATROPIUM BROMIDE (0.02%) 0.5MG/2.5ML NEB HHN SCH ×3 (09:22→20:14)
[2023-08-04] MEDS: MONTELUKAST SODIUM 10MG TABLET PO SCH (16:45)
[2023-08-04] MEDS: ACETAMINOPHEN 325MG TABLET PO PRN (21:28)
[2023-08-05] VITALS (16 sets, daily range): BP systolic 143–179; BP diastolic 52–81; PULSE 83–111; RESP 20–33; TEMP 97.7–98.2; O2SAT 99
[2023-08-05] MEDS: IPRATROPIUM BROMIDE (0.02%) 0.5MG/2.5ML NEB HHN SCH ×3 (02:25→20:34)
[2023-08-05] MEDS: ACETAMINOPHEN 325MG TABLET PO PRN ×3 (05:34→20:28)
[2023-08-05] MEDS: DILTIAZEM HCL 90MG TABLET PO SCH ×3 (05:34→20:25)
[2023-08-05] MEDS: SILDENAFIL CITRATE 20MG TABLET PO SCH ×3 (05:36→21:06)
[2023-08-05] MEDS: METHYLPREDNISOLONE SOD SUCC 125MG/2ML (ACT-O-VIAL) IV SCH ×3 (05:36→21:06)
[2023-08-05 07:32] LABS: BG BASE EXCESS 14.7 mmol/L (-2.0-2.0); BG CARBOXYHEMOGLOBIN 0.3 % (0.5-1.5); BG DEOXYHEMOGLOBIN 4.2 % (0.0-5.0); BG HCO3 ACT 40.5 mmol/L (22.0-26.0); BG METHEMOGLOBIN 0.1 % (0.0-1.5); BG OXYGEN SATURATION 95.8 % (92.0-98.5); BG OXYHEMOGLOBIN 95.4 % (94.0-97.0); BG PCO2 58.7 mmHg (35.0-45.0); BG PH 7.457 (7.350-7.450); BG PO2 83.7 mmHg (75.0-100.0); BG SAMPLE SITE RIGHT RADIAL; BG TOTAL HEMOGLOBIN 9.2 g/dL (12.0-18.0); BG VENT MODE MASK - BIPAP
[2023-08-05] MEDS: ASPIRIN 81MG EC TABLET PO SCH (08:53)
[2023-08-05] MEDS: MULTIVITAMINS,THER W-MINERALS TABLET PO SCH (08:53)
[2023-08-05] MEDS: AMIODARONE HCL 200 MG TABLET PO SCH (08:54)
[2023-08-05] MEDS: ENOXAPARIN 80MG/0.8ML SYR SUBCUT SCH ×2 (08:54→20:27)
[2023-08-05] MEDS ORDERED: ACETAZOLAMIDE 250MG TABLET PO NR (11:00)
[2023-08-05] MEDS: MONTELUKAST SODIUM 10MG TABLET PO SCH (18:26)
[2023-08-06] VITALS (15 sets, daily range): BP systolic 135–175; BP diastolic 57–73; PULSE 79–110; RESP 14–31; TEMP 94.6–97.9; O2SAT 99
[2023-08-06] MEDS: IPRATROPIUM BROMIDE (0.02%) 0.5MG/2.5ML NEB HHN SCH ×4 (01:04→21:10)
[2023-08-06] MEDS: CLONIDINE 0.1MG TABLET PO PRN (02:24)
[2023-08-06] MEDS: SILDENAFIL CITRATE 20MG TABLET PO SCH ×3 (05:41→22:33)
[2023-08-06] MEDS: METHYLPREDNISOLONE SOD SUCC 125MG/2ML (ACT-O-VIAL) IV SCH ×4 (05:41→22:32)
[2023-08-06] MEDS: DILTIAZEM HCL 90MG TABLET PO SCH ×3 (05:42→22:32)
[2023-08-06] MEDS: MULTIVITAMINS,THER W-MINERALS TABLET PO SCH (09:02)
[2023-08-06] MEDS: AMIODARONE HCL 200 MG TABLET PO SCH (09:02)
[2023-08-06] MEDS: ENOXAPARIN 80MG/0.8ML SYR SUBCUT SCH ×2 (09:03→22:37)
[2023-08-06] MEDS: ASPIRIN 81MG EC TABLET PO SCH (09:03)
[2023-08-06 10:01] LABS: BG BASE EXCESS 10.4 mmol/L (-2.0-2.0); BG FRACTION INSPIRED OXYGEN 44; BG METHEMOGLOBIN 0.3 % (0.0-1.5); BG OXYHEMOGLOBIN 98.7 % (94.0-97.0); BG PH 7.387 (7.350-7.450); BG PO2 195.9 mmHg (75.0-100.0); BG SAMPLE SITE RIGHT RADIAL; BG TOTAL HEMOGLOBIN 9.4 g/dL (12.0-18.0); BG VENT MODE NASAL CANNULA
[2023-08-06] MEDS: ACETAMINOPHEN 325MG TABLET PO PRN ×3 (13:46→22:31)
[2023-08-06] MEDS: MONTELUKAST SODIUM 10MG TABLET PO SCH (16:37)
[2023-08-06] MEDS ORDERED: IPRATROPIUM/ALBUTEROL 0.5-3(2.5)MG/3ML NEB HHN PRN (16:45)
[2023-08-07] VITALS (14 sets, daily range): BP systolic 113–151; BP diastolic 52–76; PULSE 102–120; RESP 20–30; TEMP 97.3–97.9; O2SAT 95–99
[2023-08-07] MEDS: IPRATROPIUM BROMIDE (0.02%) 0.5MG/2.5ML NEB HHN SCH ×3 (02:48→14:18)
[2023-08-07] MEDS: METHYLPREDNISOLONE SOD SUCC 125MG/2ML (ACT-O-VIAL) IV SCH ×3 (06:00→14:00)
[2023-08-07] MEDS: SILDENAFIL CITRATE 20MG TABLET PO SCH ×2 (06:15→12:16)
[2023-08-07] MEDS: DILTIAZEM HCL 90MG TABLET PO SCH ×2 (06:15→12:17)
[2023-08-07] MEDS: ENOXAPARIN 80MG/0.8ML SYR SUBCUT SCH (09:24)
[2023-08-07] MEDS: AMIODARONE HCL 200 MG TABLET PO SCH (09:24)
[2023-08-07] MEDS: ASPIRIN 81MG EC TABLET PO SCH (09:25)
[2023-08-07] MEDS: MULTIVITAMINS,THER W-MINERALS TABLET PO SCH (09:25)
[2023-08-07] MEDS: MONTELUKAST SODIUM 10MG TABLET PO SCH (16:58)
== END 2023-08-07 19:23 | disposition hospice, home (50) | DRG 201 ==
LOC: ER 03:35 → 8WST 06:18 → EDBEDREQ 06:21 → 5EST 13:30 → CVICU 07-27 13:25 → 5EST 08-01 19:14
PROVIDERS: ADMIT Hospitalist; ATTEND Hospitalist
PROC: 5A09357 Assistance with Respiratory Ventilation, Less than 24 Consecutive Hours, Continuous Positive Airway Pressure (ICD-10-PCS; 2023-07-24)
PROC: 5A09357 Assistance with Respiratory Ventilation, Less than 24 Consecutive Hours, Continuous Positive Airway Pressure (ICD-10-PCS; 2023-07-25)
PROC: 5A09457 Assistance with Respiratory Ventilation, 24-96 Consecutive Hours, Continuous Positive Airway Pressure (ICD-10-PCS; 2023-07-25)
PROC: 5A0945A Assistance with Respiratory Ventilation, 24-96 Consecutive Hours, High Flow/Velocity Cannula (ICD-10-PCS; 2023-07-26)
PROC: 02HV33Z Insertion of Infusion Device into Superior Vena Cava, Percutaneous Approach (ICD-10-PCS; principal; 2023-07-27)
PROC: B548ZZA Ultrasonography of Superior Vena Cava, Guidance (ICD-10-PCS; 2023-07-27)
PROC: 5A09457 Assistance with Respiratory Ventilation, 24-96 Consecutive Hours, Continuous Positive Airway Pressure (ICD-10-PCS; 2023-07-28)
PROC: 5A09357 Assistance with Respiratory Ventilation, Less than 24 Consecutive Hours, Continuous Positive Airway Pressure (ICD-10-PCS; 2023-07-30)
PROC: 5A0935A Assistance with Respiratory Ventilation, Less than 24 Consecutive Hours, High Flow/Velocity Cannula (ICD-10-PCS; 2023-07-30)
PROC: 5A09457 Assistance with Respiratory Ventilation, 24-96 Consecutive Hours, Continuous Positive Airway Pressure (ICD-10-PCS; 2023-07-31)
PROC: 5A09457 Assistance with Respiratory Ventilation, 24-96 Consecutive Hours, Continuous Positive Airway Pressure (ICD-10-PCS; 2023-08-02)
PROC: 5A0935A Assistance with Respiratory Ventilation, Less than 24 Consecutive Hours, High Flow/Velocity Cannula (ICD-10-PCS; 2023-08-02)
PROC: 5A09357 Assistance with Respiratory Ventilation, Less than 24 Consecutive Hours, Continuous Positive Airway Pressure (ICD-10-PCS; 2023-08-05)
DX: I48.91 Unspecified atrial fibrillation (principal); I26.99 Other pulmonary embolism without acute cor pulmonale; J96.01 Acute respiratory failure with hypoxia; J96.02 Acute respiratory failure with hypercapnia; I50.32 Chronic diastolic (congestive) heart failure; E07.9 Disorder of thyroid, unspecified; Z66 Do not resuscitate; I27.20 Pulmonary hypertension, unspecified; J45.909 Unspecified asthma, uncomplicated; I47.10 Supraventricular tachycardia, unspecified; I25.10 Atherosclerotic heart disease of native coronary artery without angina pectoris; I07.1 Rheumatic tricuspid insufficiency; I11.0 Hypertensive heart disease with heart failure; Z51.5 Encounter for palliative care; Z91.199 Patient's noncompliance with other medical treatment and regimen due to unspecified reason; E78.5 Hyperlipidemia, unspecified; Z79.01 Long term (current) use of anticoagulants; Z86.16 Personal history of COVID-19; E87.3 Alkalosis
CPT/HCPCS: 36415; 36573; 36600; 71045; 71275; 80048; 80053; 80061; 80162; 82375; 82805; 82962; 83735; 83880; 84145; 84443; 84484; 85025; 85027; 85379; 93005; 93308; 93970; 94640; 94660; 94664; 99291; A6261; C1725; C1893; J0282; J1160; J1644; J1650; J2270; J2405; J2704; J2920; J2930; J3490; J7060; Q9967